=== PATIENT | female | born 1960 | race Caucasian/White ===

== ENCOUNTER 2016-10-12 10:23 | Emergency (ER) | payer BC ==
[2016-10-12 10:36] VITALS: BP 130/97
--- NOTE | 2016-10-12 11:25 | EDM.PDOC ---
ED HPI Trauma - General Chief Complaint: Upper Extremity Injury/Pain Stated Complaint: LT SHOULDER PAIN Time Seen by Provider: 10/12/16 10:38 Source: Reports: Patient, RN notes reviewed - History of Present Illness INITIAL COMMENTS - FREE TEXT/NARRATIVE: 55-year-old lady has been having difficulty with pain of her left shoulder for about the past 2 weeks. She is not aware of any particular acute injury. No fall or trauma to the or more shoulder. She does have a 3-year-old granddaughter and does there has been occasional lifting associated with her granddaughter. The pain has become much worse over the past 4-5 days to there is an 8 present most of the time even at rest. She then has more sharp and shooting discomfort with any type of motion of the arm or shoulder. His been no obvious warmth erythema or swelling. No fever or chills. Allergies/ADRs: Allergies sulfacetamide Allergy (Verified 10/12/16 10:31) Cannot Remember Home Medications: Ambulatory Orders Metoprolol Tartrate 50 mg PO DAILY 04/01/15 [Confirmed 10/12/16] oxyCODONE 10 mg PO QID PRN 04/14/15 [Confirmed 10/12/16] Pramipexole [Mirapex] 1 mg PO 10/12/16 oxyCODONE 10 mg PO Q4H #10 tablet 10/12/16 Past Medical History Cardiovascular History: Reports: Hypertension Other OB/BYN History: Hysterectomy Other Musculoskeletal History: Spinal fusion, hip displasia - Past Surgical History Other Musculoskeletal Surgeries/Procedures:: left hip reconstruction Social & Family History - Family History Family Medical History: Noncontributory - Tobacco Use Smoking Status *Q: Unknown Ever Smoked Years of Tobacco use: 30 Packs/Tins Daily: 1 - Recreational Drug Use Recreational Drug Use: No Review of Systems - Review of Systems Review Of Systems: See Below Constitutional: Denies: chills, fever Eyes: Reports: no symptoms Mouth/Throat: Reports: no symptoms Cardiovascular: Denies: chest pain GI/Abdominal: Denies: Abdominal pain, Nausea, Vomiting Musculoskeletal: Reports: shoulder pain Skin: Reports: no symptoms Neurological: Reports: No Symptoms. Denies: Numbness, Tingling Trauma Exam - Physical Exam Exam: See Below General Appearance: Reports: alert, mild distress Head: Reports: atraumatic Throat/Mouth: Reports: Normal inspection Respiratory Exam: Reports: no respiratory distress, lungs clear, normal breath sounds Cardiovascular: Reports: regular rate, rhythm Extremities: Reports: pain with movement (Left shoulder), tenderness (Moderate diffuse tenderness over the anterior lateral and superior aspect of the left shoulder, no warmth erythema or visible swelling) Neurologic: Reports: no motor/sensory deficits Skin: Reports: Normal color, Warm/dry Course - Vital Signs Last Recorded V/S: Last Vital Signs Temp 98.5 F 10/12/16 10:32 Pulse 97 10/12/16 10:32 Resp 18 10/12/16 10:32 BP 130/97 H 10/12/16 10:32 Pulse Ox 97 10/12/16 10:32 - Orders/Labs/Meds Orders: Active Orders 24 hr Category Date Time Status Shoulder Comp Lt [CR] Stat Exams 10/12/16 10:50 Taken Durable Medical Equipment for Discharge [DME for Oth 10/12/16 11:20 Ordered Discharge] [COMM] Stat - Re-Assessments/Exams Free Text/Narrative Re-Assessment/Exam: 10/12/16 11:39 Radiologist has noted soft tissue calcification seen off the lateral shoulder suggestive for calcific bursitis, she already is taking oxycodone about every 6 hours for chronic pain. She states she has family coming for the holiday weekend and she will be doing a lot of cooking. She is concerned about how she is going to do this. I have recommended that she do work with anti- inflammatories. She reacts to Naprosyn but has been able to take ibuprofen or Motrin. Have also advised that she take Tylenol 2-3 times a day for extra pain relief. Recommend she get started with physical therapy and also alternate ice and heat, as well as followup with her Orthopedist. Discharge instructions as documented. Departure - Departure Time of Disposition: 11:19 Disposition: Home, Self-Care 01 Condition: fair Clinical Impression: Shoulder pain, left Qualifiers: Chronicity: acute Qualified Code(s): M25.512 - Pain in left shoulder Prescriptions: oxyCODONE 10 mg PO Q4H #10 tablet Instructions: Shoulder Pain Referrals: Melodie Castellanos NP [Primary Care Provider] - Forms: ED Department Discharge Additional Instructions: motrin or ibuprofen 4 to 600 mg 3 times daily with food, tylenol 2 to 3 times daily, oxycodone as needed for severe pain, alternate ice and heat as needed, left arm sling for 2-3 days, be sure to get your arm out and exercises as demonstrated so you do not end up with a frozen shoulder, physical therapy. Followup with orthopedist as planned, call for appointment. - My Orders Last 24 Hours: My Active Orders 10/12/16 10:50 Shoulder Comp Lt [CR] Stat 10/12/16 11:20 Durable Medical Equipment for Discharge [DME for Discharge] [COMM] Stat - Assessment/Plan Last 24 Hours: My Active Orders 10/12/16 10:50 Shoulder Comp Lt [CR] Stat 10/12/16 11:20 Durable Medical Equipment for Discharge [DME for Discharge] [COMM] Stat
--- NOTE | 2016-10-12 11:30 | CR ---
Left shoulder: Four views of the left shoulder were obtained. Soft tissue calcification is seen off the lateral shoulder most likely due to calcific bursitis. Glenohumeral joint and acromioclavicular joint appear within normal limits. No acute fracture or other bony abnormality is seen. Impression: 1. Probable calcific bursitis as noted above. 2. Left shoulder exam is otherwise unremarkable. Diagnostic code #3
== END 2016-10-12 11:32 | disposition home or self-care (01) ==
LOC: JD.ED 10:23
DX: M25.512 Pain in left shoulder (principal); I10 Essential (primary) hypertension; Z88.2 Allergy status to sulfonamides; Z90.710 Acquired absence of both cervix and uterus
CPT/HCPCS: 73030-26-LT; 73030-LT; 99283

== ENCOUNTER 2016-11-12 14:17 | Emergency (ER) | payer BC ==
[2016-11-12 14:35] VITALS: BP 151/83
[2016-11-12] MEDS ORDERED: Sodium Chloride 0.9% 2,000 ML IV ONE (15:27)
[2016-11-12] MEDS ORDERED: Ondansetron 4 MG/2 ML SDV IVPUSH ONE (15:27)
[2016-11-12] MEDS ORDERED: Pantoprazole 40 MG Vial IVPUSH ONE (15:28)
--- NOTE | 2016-11-12 15:30 | EDM.PDOC ---
ED HPI GENERAL MEDICAL PROBLEM - General Chief Complaint: Drug or Alcohol Abuse Stated Complaint: VOMITING Time Seen by Provider: 11/12/16 15:07 Source of Information: Reports: Patient History Limitations: Reports: No Limitations - History of Present Illness INITIAL COMMENTS - FREE TEXT/NARRATIVE: Patient is a 55-year-old female who presents today complaining of nausea/ vomiting, diarrhea, and mild generalized abdominal discomfort. Patient states symptoms started approximately 1 week ago. Patients states she believes it maybe related to withdrawing from opiods. She has been in a pain contract with [facility] for many years up until recently. Patient states this past September she went to [facility] and smoked marijuana. She saw her pain specialist a few days after returning and had a urine drug tox obtained positive for marijuana. Her pain contract was terminated. Patient ran out of her pain medications in October and has seen her PCP with refills obtained. States she ran out of the oxycodone this past Tuesday and took 2 hydrocodone tabs from an old prescription this past Tuesday. She does not want to be on narcotic medications any more. She was on chronic pain medications for spinal fusion in 2008 and hip replacement in May 2015. She presents to the ER concerned that she is dehydrated due to the poor oral intake. Again she refuses any pain medications at this time. Past medical history: Chronic pain medications, hypertension, anxiety Current medications: Metoprolol, tizatadine, lorazepam, ibuprofen Location: Reports: Abdomen, Generalized Quality: Reports: Ache Severity: Mild Improves with: Reports: None Worsens with: Reports: None Context: Reports: Other (denies recent consumption of bad or questionable food. No recent out of country travel.) Associated Symptoms: Reports: Loss of Appetite, Malaise, Nausea/Vomiting. Denies: Chest Pain, Cough, Fever/Chills, Shortness of Breath, Syncope Treatments LANGUAGE ASST: Reports: Other (see below) (See HPI) Abdominal Pain Score (Numeric/FACES): 4 - Related Data Allergies Allergy/AdvReac Type Severity Reaction Status Date / Time sulfacetamide Allergy Cannot Verified 11/12/16 14:35 Remember Home Meds: Home Meds Metoprolol Tartrate 50 mg PO DAILY 04/01/15 [History] Pramipexole [Mirapex] 1 mg PO DAILY 10/12/16 [History] Ciprofloxacin HCl [Cipro] 500 mg PO BID #14 tablet 11/12/16 [Rx] LORazepam [Ativan] 1 tab PO BID PRN #10 tablet 11/12/16 [Rx] Ondansetron [Zofran ODT] 4 mg PO Q6H PRN #10 tab.dis 11/12/16 [Rx] metroNIDAZOLE [Flagyl] 500 mg PO Q12H #14 tablet 11/12/16 [Rx] Past Medical History Cardiovascular History: Reports: Hypertension Other OB/BYN History: Hysterectomy Other Musculoskeletal History: Spinal fusion, hip displasia Psychiatric History: Reports: Addiction - Past Surgical History Other Musculoskeletal Surgeries/Procedures:: left hip reconstruction Social & Family History - Family History Family Medical History: Noncontributory - Tobacco Use Smoking Status *Q: Current Every Day Smoker Years of Tobacco use: 40 Packs/Tins Daily: 1 - Caffeine Use Caffeine Use: Reports: None - Recreational Drug Use Recreational Drug Use: Yes Drug Use in Last 12 Months: Yes Recreational Drug Type: Reports: Marijuana/Hashish, Oxycodone Recreational Drug Use Frequency: Daily Recreational Drug Last Use: today ED ROS GENERAL - Review of Systems Review Of Systems: See Below Constitutional: Reports: Malaise, Decreased Appetite. Denies: Fever, Chills HEENT: Reports: No Symptoms Respiratory: Reports: No Symptoms Cardiovascular: Reports: No Symptoms GI/Abdominal: Reports: Abdominal Pain (ache), Diarrhea, Decreased Appetite, Nausea, Vomiting. Denies: Black Stool, Bloody Stool, Constipation, Hematemesis , Melena : Reports: No Symptoms Musculoskeletal: Reports: No Symptoms Neurological: Denies: Dizziness ED EXAM, GI/ABD - Physical Exam Exam: See Below Exam Limited By: No Limitations General Appearance: Alert, WD/WN, No Apparent Distress Eyes: Bilateral: Normal Appearance, EOMI Ears: Hearing Grossly Normal Nose: Normal Inspection Throat/Mouth: Normal Voice, No Airway Compromise Neck: Normal Inspection, Supple, Non-Tender, Full Range of Motion Respiratory/Chest: No Respiratory Distress, Lungs Clear, Normal Breath Sounds, No Accessory Muscle Use, Chest Non-Tender Cardiovascular: Normal Peripheral Pulses, Regular Rate, Rhythm, No Murmur GI/Abdominal: Normal Bowel Sounds, Soft, Non-Tender, No Organomegaly, No Distention Back Exam: Normal Inspection. No: CVA Tenderness (L), CVA Tenderness (R) Neurological: Alert, Oriented, CN II-XII Intact, Normal Cognition, No Motor/ Sensory Deficits Psychiatric: Normal Affect, Normal Mood Skin Exam: Warm, Dry, Intact, Normal Color, No Rash Course - Vital Signs Last Recorded V/S: Last Vital Signs Temp 97.4 F 11/12/16 14:30 Pulse 58 L 11/12/16 14:30 Resp 18 11/12/16 14:30 BP 151/83 H 11/12/16 14:30 Pulse Ox 99 11/12/16 14:30 - Orders/Labs/Meds Orders: Active Orders 24 hr Category Date Time Status Abdomen 2V AP Flat Upright [CR] Stat Exams 11/12/16 15:26 Taken Labs: Laboratory Tests 11/12/16 11/12/16 11/12/16 Range/Units 15:30 15:30 20:00 WBC 13.55 H (3.98-10.04) K/mm3 RBC 5.09 (3.98-5.22) M/mm3 Hgb 16.1 H (11.2-15.7) gm/L Hct 46.1 H (34.1-44.9) % MCV 90.6 (79.4-94.8) fl MCH 31.6 (25.6-32.2) pg MCHC 34.9 (32.2-35.5) g/dl RDW Std Deviation 41.0 (36.4-46.3) fL Plt Count 215 (182-369) K/mm3 MPV 11.2 (9.4-12.3) fl Neut % (Auto) 72.1 H (34.0-71.1) % Lymph % (Auto) 16.4 L (19.3-51.7) % Ward % (Auto) 9.6 (4.7-12.5) % Eos % (Auto) 0.5 L (0.7-5.8) Baso % (Auto) 0.4 (0.1-1.2) % Neut # (Auto) 9.78 H (1.56-6.13) K/mm3 Lymph # (Auto) 2.22 (1.18-3.74) K/mm3 Ward # (Auto) 1.30 H (0.24-0.36) K/mm3 Eos # (Auto) 0.07 (0.04-0.36) K/mm3 Baso # (Auto) 0.05 (0.01-0.08) K/mm3 Manual Slide Review Normal smear Sodium 140 (136-145) mEq/L Potassium 3.2 L (3.5-5.1) mEq/L Chloride 101 (98-107) mEq/L Carbon Dioxide 25 (21-32) mEq/L Anion Gap 17.2 H (5-15) BUN 19 H (7-18) mg/dL Creatinine 1.0 (0.55-1.02) mg/dL Est Cr Clr Drug Dosing 50.27 mL/min Estimated GFR (MDRD) 58 (>60) mL/min BUN/Creatinine Ratio 19.0 H (14-18) Glucose 103 (74-106) mg/dL Calcium 9.4 (8.5-10.1) mg/dL Total Bilirubin 0.9 (0.2-1.0) mg/dL AST 16 (15-37) U/L ALT 22 (14-59) U/L Alkaline Phosphatase 94 (46-116) U/L C-Reactive Protein < 0.2 (<1.0) mg/dL Total Protein 7.9 (6.4-8.2) g/dl Albumin 4.2 (3.4-5.0) g/dl Globulin 3.7 gm/dL Albumin/Globulin Ratio 1.1 (1-2) Lipase 754 H (73-393) U/L Urine Color (Yellow) Urine Appearance (Clear) Urine pH (5.0-8.0) Ur Specific [place] (1.005-1.030) Urine Protein (Negative) Urine Glucose (UA) (Negative) Urine Ketones (Negative) Urine Occult Blood (Negative) Urine Nitrite (Negative) Urine Bilirubin (Negative) Urine Urobilinogen (0.2-1.0) Ur Leukocyte Esterase (Negative) Urine RBC (0-5) /hpf Urine WBC (0-5) /hpf Ur Epithelial Cells Ur Squamous Epith Cells (0-5) /hpf Urine Bacteria (FEW) /hpf Urine Mucus (FEW) /hpf Urine Opiates Screen Negative (NEGATIVE) Ur Buprenorphine Scrn Negative (NEGATIVE) Ur Oxycodone Screen Negative (NEGATIVE) Urine Methadone Screen Negative (NEGATIVE) Ur Propoxyphene Screen Negative (NEGATIVE) Ur Barbiturates Screen Negative (NEGATIVE) Ur Tricyclics Screen Negative (NEGATIVE) Ur Phencyclidine Scrn Negative (NEGATIVE) Ur Amphetamine Screen Negative (NEGATIVE) U Methamphetamines Scrn Negative (NEGATIVE) U Benzodiazepines Scrn Presumptive positive H (NEGATIVE) U Cocaine Metab Screen Negative (NEGATIVE) U Marijuana (THC) Screen Presumptive positive H (NEGATIVE) Ethyl Alcohol 0.00 (0.00) gm% 11/12/16 Range/Units 20:00 WBC (3.98-10.04) K/mm3 RBC (3.98-5.22) M/mm3 Hgb (11.2-15.7) gm/L Hct (34.1-44.9) % MCV (79.4-94.8) fl MCH (25.6-32.2) pg MCHC (32.2-35.5) g/dl RDW Std Deviation (36.4-46.3) fL Plt Count (182-369) K/mm3 MPV (9.4-12.3) fl Neut % (Auto) (34.0-71.1) % Lymph % (Auto) (19.3-51.7) % Ward % (Auto) (4.7-12.5) % Eos % (Auto) (0.7-5.8) Baso % (Auto) (0.1-1.2) % Neut # (Auto) (1.56-6.13) K/mm3 Lymph # (Auto) (1.18-3.74) K/mm3 Ward # (Auto) (0.24-0.36) K/mm3 Eos # (Auto) (0.04-0.36) K/mm3 Baso # (Auto) (0.01-0.08) K/mm3 Manual Slide Review Sodium (136-145) mEq/L Potassium (3.5-5.1) mEq/L Chloride (98-107) mEq/L Carbon Dioxide (21-32) mEq/L Anion Gap (5-15) BUN (7-18) mg/dL Creatinine (0.55-1.02) mg/dL Est Cr Clr Drug Dosing mL/min Estimated GFR (MDRD) (>60) mL/min BUN/Creatinine Ratio (14-18) Glucose (74-106) mg/dL Calcium (8.5-10.1) mg/dL Total Bilirubin (0.2-1.0) mg/dL AST (15-37) U/L ALT (14-59) U/L Alkaline Phosphatase (46-116) U/L C-Reactive Protein (<1.0) mg/dL Total Protein (6.4-8.2) g/dl Albumin (3.4-5.0) g/dl Globulin gm/dL Albumin/Globulin Ratio (1-2) Lipase (73-393) U/L Urine Color Yellow (Yellow) Urine Appearance Clear (Clear) Urine pH 5.5 (5.0-8.0) Ur Specific [place] 1.025 (1.005-1.030) Urine Protein Negative (Negative) Urine Glucose (UA) Negative (Negative) Urine Ketones 1+ H (Negative) Urine Occult Blood Trace-lysed H (Negative) Urine Nitrite Negative (Negative) Urine Bilirubin 1+ H (Negative) Urine Urobilinogen 0.2 (0.2-1.0) Ur Leukocyte Esterase Negative (Negative) Urine RBC 0-5 (0-5) /hpf Urine WBC 0-5 (0-5) /hpf Ur Epithelial Cells Not Reportable Ur Squamous Epith Cells 0-5 (0-5) /hpf Urine Bacteria Moderate H (FEW) /hpf Urine Mucus Moderate H (FEW) /hpf Urine Opiates Screen (NEGATIVE) Ur Buprenorphine Scrn (NEGATIVE) Ur Oxycodone Screen (NEGATIVE) Urine Methadone Screen (NEGATIVE) Ur Propoxyphene Screen (NEGATIVE) Ur Barbiturates Screen (NEGATIVE) Ur Tricyclics Screen (NEGATIVE) Ur Phencyclidine Scrn (NEGATIVE) Ur Amphetamine Screen (NEGATIVE) U Methamphetamines Scrn (NEGATIVE) U Benzodiazepines Scrn (NEGATIVE) U Cocaine Metab Screen (NEGATIVE) U Marijuana (THC) Screen (NEGATIVE) Ethyl Alcohol (0.00) gm% Meds: Medications Discontinued Medications Generic Name Dose Route Start Last Admin Trade Name Freq PRN Reason Stop Dose Admin Diatrizoate Meglum/Diatrizoate Sod 90 ml 11/12/16 19:35 11/12/16 20:01 Gastrografin 37% PO 11/12/16 19:36 90 ml ONETIME ONE Administration Sodium Chloride 2,000 mls @ 999 mls/hr 11/12/16 15:27 11/12/16 15:37 Normal Saline IV 11/12/16 17:27 999 mls/hr ONETIME ONE Administration Sodium Chloride Confirm 11/12/16 18:12 Normal Saline Administered 11/12/16 18:13 Dose 1,000 mls @ as directed .ROUTE .STK-MED ONE Iopamidol 125 ml 11/12/16 19:35 11/12/16 20:01 Isovue-300 (61%) IVPUSH 11/12/16 19:36 121 ml ONETIME ONE Administration Lorazepam 1 mg 11/12/16 17:27 11/12/16 17:35 Ativan IVPUSH 11/12/16 17:28 1 mg ONETIME ONE Administration Lorazepam 1 mg 11/12/16 19:49 11/12/16 20:27 Ativan IVPUSH 11/12/16 19:50 1 mg ONETIME ONE Administration Metronidazole 500 mg 11/12/16 20:35 11/12/16 21:26 Flagyl PO 11/12/16 20:36 500 mg ONETIME ONE Administration Ondansetron HCl 4 mg 11/12/16 15:27 11/12/16 15:39 Zofran IVPUSH 11/12/16 15:28 4 mg ONETIME ONE Administration Pantoprazole Sodium 40 mg 11/12/16 15:28 11/12/16 15:37 Protonix Iv IVPUSH 11/12/16 15:29 40 mg ONETIME ONE Administration Sodium Chloride 10 ml 11/12/16 19:35 11/12/16 20:01 Saline Flush FLUSH 11/12/16 19:36 10 ml ONETIME ONE Administration - Re-Assessments/Exams Free Text/Narrative Re-Assessment/Exam: 11/12/16 15:28 order peripheral IV with normal saline and then diagnosed per hour, 2000 mL total, Zofran 4 mg IVP, Protonix 40 mg IVP. Initial lab studies include CBC, chem 14, CRP, lipase, UA, urine drug tox, semi-to age, and abdominal flat and upright. Labs reviewed: White blood cell count 13.5, hemoglobin 16.1, sodium 140, potassium mildly low at 3.2, cr 1.0, AG 17.2, CRP less than 0.2, lipase of 54, EtOH negative. UA and drug tox not obtained. 11/12/16 17:26 Reviewed labs and x-ray with patient. Lipase is mildly elevated. CRP is WNL. Patient has no history of pancreatitis. I suggested no further testing at this time. Patient requests CT Study of the abdomen to evaluate pancreas further. 11/12/16 19:49 Patient complains of being jittery and requests ativan. Ordered ativan 1mg IVP. She is going to CT at this time. 11/12/16 20:34 CT abdomen/pelvis impression: Bowel wall thickening within the right colon compatible with nonspecific colitis. Ordered flagyl 500mg PO. Discharged home with instructions and prescription for ativan, flagyl, cipro, and zofran. Departure - Departure Time of Disposition: 21:27 Disposition: Home, Self-Care 01 Condition: fair Clinical Impression: Colitis, Anxiety, Marijuana use, Serum lipase elevation Opioid dependence Qualifiers: Substance use status: uncomplicated Qualified Code(s): F11.20 - Opioid dependence, uncomplicated - Discharge Information Prescriptions: Ciprofloxacin HCl [Cipro] 500 mg PO BID #14 tablet LORazepam [Ativan] 1 tab PO BID PRN #10 tablet PRN Reason: Anxiety Ondansetron [Zofran ODT] 4 mg PO Q6H PRN #10 tab.dis PRN Reason: Nausea metroNIDAZOLE [Flagyl] 500 mg PO Q12H #14 tablet Instructions: Finding Treatment for Addiction, Colitis Referrals: Melodie Castellanos FIELD SUPPORT TECHNICIAN [Primary Care Provider] - Additional Instructions: Take Cipro 500 mg twice a day for 7 days, Flagyl 500 mg twice a day for 7 days, Zofran 4m odt every 6 hours for nausea, and ativan 1 tab twice a day as needed for anxiety. Stick to a clear liquid diet for the next three days advancing to a soft bland diet for additional 3 days. Thereafter advance to normal diet as tolerated. Suggest taking a probiotic while on the antibiotics. See your PCP in 3 to 5 days if symptoms do not improve and for further management of pain. Do not take the zanaflex while taking cipro. Return to the E.D. for any new or worsening symptoms. - My Orders Last 24 Hours: My Active Orders 11/12/16 15:26 Abdomen 2V AP Flat Upright [CR] Stat - Assessment/Plan Last 24 Hours: My Active Orders 11/12/16 15:26 Abdomen 2V AP Flat Upright [CR] Stat
[2016-11-12] MEDS ORDERED: LORazepam 2 MG/ML MDV IVPUSH ONE ×2 (17:27→19:49)
[2016-11-12] MEDS ORDERED: Sodium Chloride 0.9% 1,000 ML ONE (18:12)
[2016-11-12] MEDS ORDERED: Diatrizoate Meglumine/Diatrizoate Sodium 37% 120 ML Bottle PO ONE (19:35)
[2016-11-12] MEDS ORDERED: Iopamidol 612 MG/ML 150 ML Bottle IVPUSH ONE (19:35)
[2016-11-12] MEDS ORDERED: Sodium Chloride 0.9% 10 ML Syringe FLUSH ONE (19:35)
--- NOTE | 2016-11-12 20:29 | CT ---
CT abdomen and pelvis Technique: Multiple axial sections were obtained from above the dome of the diaphragm inferiorly through the pubic symphysis. Intravenous and oral contrast was utilized. Delayed images were also obtained through the abdomen and pelvis. Comparison: Previous noncontrast CT abdomen and pelvis exam of 09/22/13. Findings: Visualized lung bases shows nothing acute. Liver shows a very minimal low density lesion within the inferior right lobe measuring several millimeters which is likely incidental. No additional abnormality is seen within the liver. Spleen shows several low-density findings which are felt to be incidental. Adrenal glands show no nodule. Pancreas is unremarkable. Gallbladder is mostly collapsed without calcified gallstones. Pancreas is within normal limits. Aorta and iliac vessels shows atherosclerotic change. No aneurysmal dilatation is seen. No retroperitoneal adenopathy or mesenteric abnormalities are seen. Artifact noted from screws within the left iliac wing. No pelvic mass or adenopathy is noted. Appendix is seen which appears normal. There is some bowel wall thickening within the right colon. No small bowel dilatation is seen. No free fluid or inflammatory change is noted. Artifact noted from right hip prosthesis. Previous surgery noted at L5-S1. Delayed images shows contrast excretion from both kidneys with no dilatation of the ureters being seen. Contrast is seen within the bladder. Impression: 1. Bowel wall thickening within the right colon compatible with nonspecific colitis. 2. Other incidental findings. Nothing acute is otherwise seen on CT study of the abdomen and pelvis. Diagnostic code #3
[2016-11-12] MEDS ORDERED: metroNIDAZOLE 500 MG Tab PO ONE (20:35)
--- NOTE | 2016-11-14 07:40 | CR ---
Abdomen: Supine and upright views of the abdomen were obtained. Comparison: No previous abdominal x-ray, previous CT exam of 09/22/13 is available. Bowel gas pattern is unremarkable. Right hip prosthesis noted. Old pelvic trauma is noted on the left side. Orthopedic screws seen within the left iliac wing. Several surgical clips are seen overlying the sacrum. No free air is seen. No soft tissue abnormality is identified. Calcifications are noted within the pelvis which are compatible with phleboliths. Impression: 1. Incidental findings. Nothing acute is identified on two-view abdominal x-ray. Diagnostic code #2
== END 2016-11-12 21:50 | disposition home or self-care (01) ==
LOC: JD.ED 14:17
DX: K52.9 Noninfective gastroenteritis and colitis, unspecified (principal); F12.90 Cannabis use, unspecified, uncomplicated; F11.20 Opioid dependence, uncomplicated; R74.8 Abnormal levels of other serum enzymes; I10 Essential (primary) hypertension; F17.210 Nicotine dependence, cigarettes, uncomplicated; Z96.642 Presence of left artificial hip joint; Z98.1 Arthrodesis status; Z79.899 Other long term (current) drug therapy; Z90.710 Acquired absence of both cervix and uterus; Z88.2 Allergy status to sulfonamides
CPT/HCPCS: 36415; 74020; 74177; 80053; 80306; 81001; 83690; 85025; 86140; 96361; 96374; 96375; 96376; 99285; A9270; C9113; G0480; J2060; J2405; J7040; J7050; Q9963; Q9967; 99284

== ENCOUNTER 2016-11-14 11:25 | Emergency (ER) | payer BC ==
--- NOTE | 2016-11-14 11:59 | EDM.PDOC ---
ED HPI GENERAL MEDICAL PROBLEM - General Chief Complaint: Gastrointestinal Problem Stated Complaint: CANT KEEP FOOD OR MEDS DOWN Time Seen by Provider: 11/14/16 11:50 Source of Information: Reports: Patient History Limitations: Reports: No Limitations - History of Present Illness INITIAL COMMENTS - FREE TEXT/NARRATIVE: 55-year-old female presents to the ED to to persistent nausea vomiting and diarrhea. Patient states that she stopped her OxyContin which she was taking 50 mg 3 times a day last Tuesday, November 06. 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 Has chronic low back pain with 2 previous lumbar spine surgeries. She is elected to remain off narcotics. She states that she can't keep anything down she is continually nauseated with intermittent abdominal cramping pain. She states she's having up to 15 loose bowel movements per day. Loose and watery. No blood noted. Vomited last evening. Again no blood has been noted. She 's lightheaded and dizzy when she stands. She was seen to the ED 2 days ago and did have CT of the abdomen carried out. This suggested that she an area of colitis involving the transverse colon. She did have an elevated lipase at 794 when she was seen through the ED. She was not having a lot of abdominal pain that concurred with this. CT did not show any evidence of pancreatitis. She was brought depleted with an anion gap of 17.5. She was also hypokalemic with potassium of 3.2. She was treated with IV fluids and potassium replacement therapy. Discharged home on Flagyl and Cipro due to the colitis identified on CT. She is on Ativan 1 mg up to 4 times daily for relief of opiate withdrawal symptoms. She does not wish to go back on any narcotics. Currently she is having very little abdominal pain. She still of course is her chronic pain in her back and hips and knees. Onset: Gradual Onset Date: 11/10/16 Duration: Day(s):, Constant Location: Reports: Other (Recurrent intractable nausea vomiting and diarrhea. Acute narcotic withdrawal syndrome.) Quality: Reports: Other Severity: Moderate (Intermittent abdominal cramps.) Improves with: Reports: None (Zofran sublingual has not been working to control nausea.), Other (Did have a little chicken broth soup last night.) Worsens with: Reports: Other Context: Reports: Other (Acute opiate withdrawal with last dose of narcotic taken a week ago.). Denies: Activity (Eating), Exercise, Lifting, Sick Contact , Trauma Associated Symptoms: Reports: Malaise, Nausea/Vomiting, Other (Intractable nausea and vomiting intractable diarrhea). 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 (see below) Abdominal Pain Score (Numeric/FACES): 0 - Related Data Allergies Allergy/AdvReac Type Severity Reaction Status Date / Time metoclopramide [From Reglan] Allergy Agitation Verified 11/14/16 14:18 sulfacetamide Allergy Cannot Verified 11/14/16 11:47 Remember Home Meds: Home Meds Metoprolol Tartrate 50 mg PO DAILY 04/01/15 [History] Pramipexole [Mirapex] 1 mg PO DAILY 10/12/16 [History] Ciprofloxacin HCl [Cipro] 500 mg PO BID #14 tablet 11/12/16 [Rx] LORazepam [Ativan] 1 tab PO BID PRN #10 tablet 11/12/16 [Rx] Ondansetron [Zofran ODT] 4 mg PO Q6H PRN #10 tab.dis 11/12/16 [Rx] metroNIDAZOLE [Flagyl] 500 mg PO Q12H #14 tablet 11/12/16 [Rx] Dicyclomine [Bentyl] 20 mg IM QID #12 vial 11/14/16 [Rx] Suvorexant [Belsomra] 11/14/16 [History] Suvorexant [Belsomra] 20 mg PO BEDTIME 11/14/16 [History] Past Medical History Cardiovascular History: Reports: Hypertension Other OB/BYN History: Hysterectomy Musculoskeletal History: Reports: Back Pain, Chronic (2 previous lumbar spine surgeries with continued pain referred into the buttocks and upper legs bilaterally. Had congenital dysplasia of the hips. Has had a total hip replacement on the right side and reconstructive surgery on the left.), Osteoarthritis Other Musculoskeletal History: Spinal fusion, hip displasia Neurological History: Reports: Other (See Below) (Restless leg syndrome.) Psychiatric History: Reports: Addiction - Past Surgical History Female Surgical History: Reports: Section (X3) Neurological Surgical History: Reports: Discectomy (He believes L4-L5 levels.), Laminectomy (X2 with discectomy.), Lumbar Spine Musculoskeletal Surgical History: Reports: Hip Replacement (Right side) Other Musculoskeletal Surgeries/Procedures:: left hip reconstruction Social & Family History - Family History Family Medical History: Noncontributory - Tobacco Use Smoking Status *Q: Current Every Day Smoker Years of Tobacco use: 40 Packs/Tins Daily: 1 - Caffeine Use Caffeine Use: Reports: None - Recreational Drug Use Recreational Drug Use: Yes Drug Use in Last 12 Months: Yes Recreational Drug Type: Reports: Marijuana/Hashish, Oxycodone Recreational Drug Use Frequency: Daily Recreational Drug Last Use: today - Living Situation & Occupation Living situation: Reports: Occupation: Unemployed ED ROS GENERAL - Review of Systems Review Of Systems: See Below Constitutional: Reports: Chills, Malaise, Weakness, Fatigue, Decreased Appetite , Weight Loss (Feel she's lost about 8 pounds in the last week.). Denies: Fever HEENT: Reports: No Symptoms Respiratory: Reports: No Symptoms Cardiovascular: Reports: Lightheadedness (Sometimes. When she stands up.), Palpitations Endocrine: Reports: Fatigue GI/Abdominal: Reports: Abdominal Pain (Intermittent abdominal cramps.), Diarrhea (Reports severe diarrhea large volume water loss per rectum 15 times per day. No blood per rectum.), Nausea (Intractable nausea and vomiting with bilious material.), Vomiting : Reports: No Symptoms Musculoskeletal: Reports: Back Pain (Chronic low back pain chronic pain in both hips), Joint Pain (Both hip) Skin: Reports: No Symptoms Neurological: Reports: Dizziness, Difficulty Walking (Chronically), Weakness, Gait Disturbance (Chronic). Denies: Numbness, Paresthesia, Seizure, Syncope, Tingling, Tremors, Trouble Speaking Psychiatric: Reports: Anxiety, Mood Lability. Denies: Homicidal Ideation, Suicidal Ideation Hematologic/Lymphatic: Reports: No Symptoms Immunologic: Reports: No Symptoms ED EXAM, GI/ABD - Physical Exam Exam: See Below Exam Limited By: No Limitations General Appearance: Alert, WD/WN, Anxious, Mild Distress Eyes: Bilateral: Normal Appearance (No jaundice) Throat/Mouth: Normal Lips, Normal Oropharynx, Other Head: Atraumatic, Normocephalic Neck: Normal Inspection, Supple, Non-Tender, Full Range of Motion. No: Lymphadenopathy (L), Lymphadenopathy (R) Respiratory/Chest: No Respiratory Distress, Lungs Clear, Normal Breath Sounds, No Accessory Muscle Use Cardiovascular: Normal Peripheral Pulses, Regular Rate, Rhythm, No Edema, No Gallop, No Murmur GI/Abdominal: Normal Bowel Sounds, Soft, Non-Tender, No Organomegaly, No Distention, No Abnormal Bruit, No Mass, Other (Multiple well-healed surgical scars particular midline lower abdomen. Left lower quadrant wound was for harvesting of bone from her iliac crest.) Back Exam: Paraspinal Tenderness (Bilaterally entire lumbar spine), Vertebral Tenderness ( spine.), Other (Well-healed midline surgical scars over the lumbar) Extremities: Normal Inspection, Normal Range of Motion, Non-Tender, No Pedal Edema Neurological: Alert, Oriented, CN II-XII Intact, Normal Cognition. No: Normal Gait Psychiatric: Normal Affect, Normal Mood Skin Exam: Warm, Dry, Intact, Normal Color, No Rash Course - Vital Signs Last Recorded V/S: Last Vital Signs Temp 36.8 C 11/14/16 11:50 Pulse 65 11/14/16 11:50 Resp 16 11/14/16 11:50 BP 134/85 11/14/16 11:50 Pulse Ox 96 11/14/16 11:50 - Orders/Labs/Meds Orders: Active Orders 24 hr Category Date Time Status Orthostatic Vital Signs [RC] ASDIRECTED Care 11/14/16 12:03 Active C DIFFICILE BY PCR W/NAP1 [MOLEC] Stat Lab 11/14/16 11:59 Ordered WBC, STOOL [OP] Stat Lab 11/14/16 12:03 Uncollected Dextrose 5%-0.9% NaCl [Dextrose 5%-Normal Saline] 1,000 Med 11/14/16 12:00 Active ml IV ASDIRECTED Potassium Chloride [KCl 10 MEQ in Water 100 ML] 10 meq Med 11/14/16 12:45 Active Premix Bag 1 bag IV ASDIRECTED Medication Orders Dextrose/Sodium Chloride (Dextrose 5%-Normal Saline) 1,000 mls @ 999 mls/hr IV ASDIRECTED JO Last Admin: 11/14/16 12:33 Dose: 999 mls/hr Potassium Chloride 10 meq/ (Premix) 100 mls @ 100 mls/hr IV ASDIRECTED JO Last Admin: 11/14/16 13:30 Dose: 100 mls/hr Labs: Laboratory Tests 11/14/16 11/14/16 Range/Units 12:03 12:03 WBC 11.55 H (3.98-10.04) K/mm3 RBC 4.29 (3.98-5.22) M/mm3 Hgb 13.5 (11.2-15.7) gm/L Hct 39.2 (34.1-44.9) % MCV 91.4 (79.4-94.8) fl MCH 31.5 (25.6-32.2) pg MCHC 34.4 (32.2-35.5) g/dl RDW Std Deviation 40.4 (36.4-46.3) fL Plt Count 192 (182-369) K/mm3 MPV 11.3 (9.4-12.3) fl Neutrophils % (Manual) 73 H (40-60) % Band Neutrophils % 0 (0-10) % Lymphocytes % (Manual) 23 (20-40) % Atypical Lymphs % 0 % Monocytes % (Manual) 3 (2-10) % Eosinophils % (Manual) 1 (0.7-5.8) % Basophils % (Manual) 0 L (0.1-1.2) Platelet Estimate Adequate RBC Morph Comment Normal Sodium 140 (136-145) mEq/L Potassium 3.2 L (3.5-5.1) mEq/L Chloride 104 (98-107) mEq/L Carbon Dioxide 27 (21-32) mEq/L Anion Gap 12.2 (5-15) BUN 8 (7-18) mg/dL Creatinine 1.0 (0.55-1.02) mg/dL Est Cr Clr Drug Dosing 52.58 mL/min Estimated GFR (MDRD) 58 (>60) mL/min BUN/Creatinine Ratio 8.0 L (14-18) Glucose 99 (74-106) mg/dL Calcium 8.8 (8.5-10.1) mg/dL Total Bilirubin 0.6 (0.2-1.0) mg/dL AST 17 (15-37) U/L ALT 19 (14-59) U/L Alkaline Phosphatase 81 (46-116) U/L C-Reactive Protein 0.2 (<1.0) mg/dL Total Protein 6.8 (6.4-8.2) g/dl Albumin 3.7 (3.4-5.0) g/dl Globulin 3.1 gm/dL Albumin/Globulin Ratio 1.2 (1-2) Lipase 289 (73-393) U/L Meds: Medications Generic Name Dose Route Start Last Admin Trade Name Freq PRN Reason Stop Dose Admin Dextrose/Sodium Chloride 1,000 mls @ 999 mls/hr 11/14/16 12:00 11/14/16 12:33 Dextrose 5%-Normal Saline IV 999 mls/hr ASDIRECTED JO Administration Potassium Chloride 10 meq/ 100 mls @ 100 mls/hr 11/14/16 12:45 11/14/16 13:30 Premix IV 100 mls/hr ASDIRECTED JO Administration Discontinued Medications Generic Name Dose Route Start Last Admin Trade Name Freq PRN Reason Stop Dose Admin Dicyclomine HCl 20 mg 11/14/16 12:00 11/14/16 13:30 Bentyl PO 11/14/16 12:01 20 mg ONETIME ONE Administration Diphenhydramine HCl 25 mg 11/14/16 12:45 11/14/16 12:53 Benadryl IVPUSH 11/14/16 12:46 25 mg ONETIME ONE Administration Diphenhydramine HCl Confirm 11/14/16 12:48 11/14/16 14:07 Benadryl Administered 11/14/16 12:49 Not Given Dose 50 mg .ROUTE .STK-MED ONE Diphenhydramine HCl 25 mg 11/14/16 12:55 11/14/16 12:57 Benadryl IVPUSH 11/14/16 12:56 25 mg ONETIME ONE Administration Lorazepam 1 mg 11/14/16 12:01 11/14/16 12:30 Ativan IVPUSH 11/14/16 12:02 1 mg ONETIME ONE Administration Lorazepam 1 mg 11/14/16 14:03 11/14/16 14:10 Ativan IVPUSH 11/14/16 14:04 1 mg ONETIME ONE Administration Metoclopramide HCl 10 mg 11/14/16 12:01 11/14/16 12:20 Reglan IVPUSH 11/14/16 12:02 10 mg ONETIME ONE Administration Potassium Bicarbonate 20 meq 11/14/16 14:34 Effer-K PO 11/14/16 14:35 ONETIME ONE - Radiology Interpretation Free Text/Narrative:: 55-year-old female presents to the ED with reported inability to keep anything down due to intractable nausea and vomiting and associated diarrhea. She claims 15 bowel movements per day for the last several days. She is going to acute opiate withdrawal having last taken any opiates last Tuesday, November 06. She was on OxyContin 15 mg 3 times daily plus other narcotics for breakthrough pain. She was kicked off the chronic pain management plan by Dr. Schultz when she returned from [place] with marijuana in her system. She is elected to stay off narcotics and see if she get along without them. Unfortunately she's developed a lot of GI upset. She was seen through the ED 2 days ago and did receive IV fluids and potassium replacement therapy. She was discharged home on Flagyl 500 3 times a day with Cipro 500 twice a day due to an area of colitis appreciated on CT scan. She had an elevated lipase at 794 of unclear etiology. She denies any abdominal pain this time. States gets intermittent cramps before the diarrhea occurs. Plan stool will be collected for white cells and C. difficile. She denies any antibiotic therapy in the last several months. She is orthostatic and therefore will receive IV fluids initially D5 normal saline at open. Potassium was low-normal at 3.2 last time. She may well require further potassium replacement therapy as well. Given Ativan 1 mg IV at this time. Reglan 10 mg IV for nausea and vomiting relief Bentyl 20 mg by mouth about 20 minutes after that Reglan has been given to relieve cramping. - Re-Assessments/Exams Free Text/Narrative Re-Assessment/Exam: 11/14/16 12:42 labs are back and revealed a white count of 11.55 differential is pending. Hemoglobin is 13.5 hematocrit is 39.2 platelets 192,000. Chemistry shows a sodium of 140 potassium low at 3.2. Chloride 104 bicarbonate is normal at 27. Anion gap is 12.2 normal lipase is down to 289 glucose is 99. She will therefore be given potassium supplement 10 mEq IV piggyback over half an hour. Clinically therefore her lites are very stable and I doubt that she's having 15 loose stools per day particularly in view of the bicarbonate being normal. 11/14/16 12:46 nurse reports the patient seems to be more anxious and agitated since receiving the Reglan. He clinically appears she is experiencing a moderate dystonic reaction. Will give Benadryl 25 mg IV. 11/14/16 12:55 still feeling quite restless and agitated. Will repeat Benadryl 25 mg IV. 11/14/16 13:18 finally agitation and dystonic reaction is settling down after 50 mg of Benadryl. 11/14/16 14:35 patient could not tolerate the potassium the minibag as it caused too much pain in the limb. IV was discontinued. I will give her Slow-K 20 mg tablet by mouth. She'll be discharged to home to continue clear fluids such Gatorade Powerade avoiding all-day products and no apple juice or grape juice until stools are formed back up. We'll place the Cipro and Flagyl on hold at this time. She'll continue Zofran 4 mg sublingual q. 6 hours. For nausea relief. Then 1 mg every 6-8 hours as needed for relief of opiate withdrawal symptoms Departure - Departure Time of Disposition: 14:36 Disposition: Home, Self-Care 01 Condition: fair Clinical Impression: Volume depletion, gastrointestinal loss, Opiate withdrawal Intractable nausea and vomiting Qualifiers: Vomiting type: unspecified Qualified Code(s): R11.2 - Nausea with vomiting, unspecified Diarrhea Qualifiers: Diarrhea type: unspecified type Qualified Code(s): R19.7 - Diarrhea, unspecified - Discharge Information Prescriptions: Dicyclomine [Bentyl] 20 mg IM QID #12 vial Referrals: Melodie Castellanos NP [Primary Care Provider] - Forms: ED Department Discharge Additional Instructions: Evaluation in the emergency him today in regards to persistent intractable nausea and vomiting and associated fluid losses by diarrhea. Opiate withdrawal syndrome recognized and currently on day 7 since last opiate ingestion. You're treated with IV fluids and a small amount of IV potassium in the ED. Potassium level today was 3.2. You're also given Slow-K 20 mg tablet by mouth to improve the levels of this electrolyte. No diarrhea occurred while in the department and additional samples were obtained of the stool. At this time I would suggest Gatorade Powerade and as tolerated may treat his crackers toast and soup such as turkey rice turkey noodle et cetera. Avoid all dairy products and no apple or grape juice until stools are formed back up. Continue probiotics as you have been trying to do. Continue Ativan one tablet every 6-8-12 hours as needed for withdrawal symptoms. Zofran 4 mg under the tongue every 4-6 hours needed for nausea relief. May use Bentyl 20 mg every 6 hours as necessary for relief of diarrhea or bowel cramping pain. 2 to dystonic reaction from Reglan I would suggest ever using this medication again if this is a side effect of some of the antinausea medications. Not a true allergy. - My Orders Last 24 Hours: My Active Orders 11/14/16 11:59 C DIFFICILE BY PCR W/NAP1 [MOLEC] Stat 11/14/16 12:00 Dextrose 5%-0.9% NaCl [Dextrose 5%-Normal Saline] 1,000 ml IV ASDIRECTED 11/14/16 12:03 Orthostatic Vital Signs [RC] ASDIRECTED WBC, STOOL [OP] Stat 11/14/16 12:45 Potassium Chloride [KCl 10 MEQ in Water 100 ML] 10 meq Premix Bag 1 bag IV ASDIRECTED - Assessment/Plan Last 24 Hours: My Active Orders 11/14/16 11:59 C DIFFICILE BY PCR W/NAP1 [MOLEC] Stat 11/14/16 12:00 Dextrose 5%-0.9% NaCl [Dextrose 5%-Normal Saline] 1,000 ml IV ASDIRECTED 11/14/16 12:03 Orthostatic Vital Signs [RC] ASDIRECTED WBC, STOOL [OP] Stat 11/14/16 12:45 Potassium Chloride [KCl 10 MEQ in Water 100 ML] 10 meq Premix Bag 1 bag IV ASDIRECTED
[2016-11-14] MEDS ORDERED: Dicyclomine 10 MG Cap PO ONE (12:00)
[2016-11-14] MEDS ORDERED: Dextrose 5%-0.9% NaCl 1,000 ML IV SCH (12:00)
[2016-11-14] MEDS ORDERED: LORazepam 2 MG/ML MDV IVPUSH ONE ×2 (12:01→14:03)
[2016-11-14] MEDS ORDERED: Metoclopramide 10 MG/2 ML SDV IVPUSH ONE (12:01)
[2016-11-14] MEDS ORDERED: diphenhydrAMINE 50 MG/ML SDV IVPUSH ONE ×2 (12:45→12:55)
[2016-11-14] MEDS ORDERED: Potassium Chloride 10 MEQ in Premix Bag 1 BAG IV SCH (12:45)
[2016-11-14] MEDS ORDERED: diphenhydrAMINE 50 MG/ML SDV ONE (12:48)
[2016-11-14] MEDS ORDERED: Potassium Bicarbonate/Cit Ac 20 MEQ Effervescent Tab PO ONE (14:34)
[2016-11-14 16:29] VITALS: BP 124/54
== END 2016-11-14 15:05 | disposition home or self-care (01) ==
LOC: JD.ED 11:25
DX: E86.9 Volume depletion, unspecified (principal); F11.23 Opioid dependence with withdrawal; I10 Essential (primary) hypertension; F17.210 Nicotine dependence, cigarettes, uncomplicated; Z88.2 Allergy status to sulfonamides; Z88.8 Allergy status to other drugs, medicaments and biological substances; Z79.899 Other long term (current) drug therapy; Z90.710 Acquired absence of both cervix and uterus; Z96.641 Presence of right artificial hip joint
CPT/HCPCS: 36415; 80053; 83690; 85025; 86140; 96361; 96365; 96375; 99284; A9270; J1200; J2060; J2765; J3480; J7042

== ENCOUNTER 2019-05-18 09:02 | Emergency (ER) | payer BC ==
[2019-05-18 09:15] VITALS: BP 150/77; PULSE 73
--- NOTE | 2019-05-18 09:18 | EDM.PDOC ---
ED HPI GENERAL MEDICAL PROBLEM - General Chief Complaint: Back Pain or Injury Stated Complaint: BACK PAIN Time Seen by Provider: 05/18/19 09:12 Source of Information: Reports: Patient, RN Notes Reviewed History Limitations: Reports: No Limitations - History of Present Illness INITIAL COMMENTS - FREE TEXT/NARRATIVE: Patient is a 58-year-old female who presents to the ED for evaluation of lower back pain. The patient notes that she has had multiple different back surgeries , and a right hip replacement. She states she does have a fusion of L5 and S1, and notes that she does need another fusion but her back pain has been tolerable , so they decided to wait to have this done. Patient notes roughly 2 days ago she had a chiropractic treatment and a massage for this, and it did seem to get better however yesterday morning she woke up with spasms in her lower back with pain radiation into both of her hips. She did take 1 Flexeril at home, and some leftover pain pill she had from previous surgeries, but these have not helped much at all. Patient has not taken anything for medication for pain today. Patient states she does have tingling down her legs, but feels most of the pain radiate into the hips. She denies any bowel or bladder dysfunction. She denies any other sick symptoms like fever/chills, nausea/vomiting/diarrhea, chest pain or shortness of breath. Her back surgeon is Dr. Ridley out of [facility]. Lower Back Pain Score (Numeric/FACES): 8 - Related Data Allergies Allergy/AdvReac Type Severity Reaction Status Date / Time sulfacetamide Allergy Cannot Verified 05/18/19 09:09 Remember metoclopramide [From Reglan] AdvReac Agitation Verified 05/18/19 09:20 Home Meds: Home Meds Metoprolol Tartrate 50 mg PO DAILY 04/01/15 [History] Orphenadrine [Norflex] 100 mg PO BID PRN #20 tab 05/18/19 [Rx] methylPREDNISolone [Medrol] 4 mg PO ASDIRECTED #1 dospk 05/18/19 [Rx] Past Medical History Cardiovascular History: Reports: Hypertension Other S[employer]IOR [employer]ER DBA History: Hysterectomy Musculoskeletal History: Reports: Back Pain, Chronic (2 previous lumbar spine surgeries with continued pain referred into the buttocks and upper legs bilaterally. Had congenital dysplasia of the hips. Has had a total hip replacement on the right side and reconstructive surgery on the left.), Osteoarthritis Other Musculoskeletal History: Spinal fusion, hip displasia Neurological History: Reports: Other (See Below) (Restless leg syndrome.) Psychiatric History: Reports: Addiction - Past Surgical History Female Surgical History: Reports: Section (X3) Neurological Surgical History: Reports: Discectomy (He believes L4-L5 levels.), Laminectomy (X2 with discectomy.), Lumbar Spine Musculoskeletal Surgical History: Reports: Hip Replacement (Right side) Other Musculoskeletal Surgeries/Procedures:: left hip reconstruction Social & Family History - Family History Family Medical History: Noncontributory - Caffeine Use Caffeine Use: Reports: None - Living Situation & Occupation Living situation: Reports: Occupation: Unemployed ED ROS GENERAL - Review of Systems Review Of Systems: See Below Constitutional: Denies: Fever, Chills HEENT: Reports: No Symptoms Respiratory: Denies: Shortness of Breath Cardiovascular: Denies: Chest Pain Endocrine: Reports: No Symptoms GI/Abdominal: Denies: Abdominal Pain, Diarrhea, Nausea, Vomiting : Reports: No Symptoms Musculoskeletal: Reports: Back Pain Skin: Reports: No Symptoms Neurological: Reports: Tingling, Difficulty Walking (d/t pain in low back/hips) Psychiatric: Reports: No Symptoms Hematologic/Lymphatic: Reports: No Symptoms Immunologic: Reports: No Symptoms ED EXAM,LOWER BACK PAIN/INJURY - Physical Exam Exam: See Below Exam Limited By: No Limitations General Appearance: Alert, WD/WN, No Apparent Distress Throat/Mouth: Normal Inspection, Normal Lips, Normal Teeth, Normal Gums, Normal Oropharynx, Normal Voice, No Airway Compromise Head: Atraumatic, Normocephalic Neck: Normal Inspection Respiratory/Chest: No Respiratory Distress, Lungs Clear, Normal Breath Sounds, No Accessory Muscle Use, Chest Non-Tender Cardiovascular: Normal Peripheral Pulses, Regular Rate, Rhythm, No Murmur GI/Abdominal: Normal Bowel Sounds, Soft, Non-Tender, No Distention, No Mass Back Exam: Normal Inspection, Decreased Range of Motion (d/t pain), Muscle Spasm (noted to lumbar area near iliac crest) Extremities: Normal Inspection, Normal Capillary Refill Neurological: Alert, Normal Mood/Affect, Normal Dorsiflexion, Normal Plantar Flexion, Oriented x 3, Straight Leg Raise (L), Straight Leg Raise (R). No: Saddle Anesthesia Psychiatric: Normal Affect, Normal Mood Skin Exam: Warm, Dry, Intact, Normal Color, No Rash Course - Vital Signs Last Recorded V/S: Last Vital Signs Temp 98.4 F 05/18/19 09:11 Pulse 73 05/18/19 09:11 Resp 13 05/18/19 09:11 BP 150/77 H 05/18/19 09:11 Pulse Ox 100 05/18/19 09:11 - Orders/Labs/Meds Orders: Active Orders 24 hr Category Date Time Status Influenza Vaccine Charge [RC] .DISCHARGE Care 05/18/19 09:19 Active Meds: Medications Discontinued Medications Generic Name Dose Route Start Last Admin Trade Name Waylon PRN Reason Stop Dose Admin Dexamethasone 10 mg 05/18/19 10:06 05/18/19 10:13 Dexamethasone IM 05/18/19 10:07 10 mg ONETIME ONE Administration Influenza Virus Vaccine 60 mcg 05/18/19 10:00 05/18/19 09:38 Fluzone Quad [id number] Syringe IM 05/18/19 10:01 60 mcg .ONCE ONE Administration Ketorolac Tromethamine 60 mg 05/18/19 10:06 05/18/19 10:13 Toradol IM 05/18/19 10:07 60 mg ONETIME ONE Administration Orphenadrine Citrate 100 mg 05/18/19 10:05 05/18/19 10:14 Norflex PO 05/18/19 10:06 100 mg ONETIME ONE Administration - Re-Assessments/Exams Free Text/Narrative Re-Assessment/Exam: 05/18/19 10:16 Patient presents to the ED for the evaluation of lower back pain. I do believe most of her pain is due to a sciatic component superimposed on top of her chronic low back pain. I did order 10 mg IM dexamethasone, 60 mg IM ketorolac, and 100 mg PO For initial management in the ER. We discussed imaging, and I will provide the patient with an outpatient MRI forearm and she will follow-up with Dr. Vega for further management. She will be sent home with Medrol Dosepak and Norflex. 05/18/19 10:58 Patient is feeling better after medications have been given, she is sitting comfortably on the ER cot. We'll discharge her home with general recommendations. Departure - Departure Time of Disposition: 10:59 Disposition: Home, Self-Care 01 Condition: Fair Clinical Impression: Low back pain due to bilateral sciatica - Discharge Information *PRESCRIPTION DRUG MONITORING PROGRAM REVIEWED*: No *COPY OF PRESCRIPTION DRUG MONITORING REPORT IN PATIENT BRYCE: No Prescriptions: methylPREDNISolone [Medrol] 4 mg PO ASDIRECTED #1 dospk Orphenadrine [Norflex] 100 mg PO BID PRN #20 tab PRN Reason: Spasms Instructions: Sciatica, [id number] Referrals: Anny Wisdom TECHNICAL SOLUTION ARCHITECT [Primary Care Provider] - Forms: ED Department Discharge Additional Instructions: You have been evaluated in the ED for your low back pain. Your pain today is likely due to sciatica in nature. Please take the Medrol Dosepak as prescribed. You were given muscle relaxers, Norflex, take 1 tab 2 times daily as needed for further muscle spasms. You were also provided with a outpatient MRI form of your lumbar region, our radiology department should call to schedule an appointment with you. You may need to do preauthorization with your insurance as you stated you had a recent MRI done in January. Please call to check on the status before they schedule you for the appointment. You should follow up with Dr. Vega after the MRI is done. You will need to follow up with our health information management department on Tuesday, so you may have your records transferred to Dr. Ridley's office. Please use ice/heat as tolerated to the affected area. You may take Tylenol 500 mg or ibuprofen 600mg q6 hrs for pain relief. Please do so until you have a tolerable level of pain with activity. Do not exceed 4000mg Tylenol or 3200mg ibuprofen in a 24 hour time period. Please return to ED if your symptoms should change or worsen. - My Orders Last 24 Hours: My Active Orders 05/18/19 09:19 Influenza Vaccine Charge [RC] .DISCHARGE - Assessment/Plan Last 24 Hours: My Active Orders 05/18/19 09:19 Influenza Vaccine Charge [RC] .DISCHARGE
[2019-05-18] MEDS ORDERED: FLU Vacc QS2019-20(6MOS+)/PF 60 MCG/0.5 ML SYRINGE IM ONE (10:00)
[2019-05-18] MEDS ORDERED: Orphenadrine 100 MG Tab.ER PO ONE (10:05)
[2019-05-18] MEDS ORDERED: Ketorolac 60 MG/2 ML SDV IM ONE (10:06)
[2019-05-18] MEDS ORDERED: Dexamethasone 10 MG/ML SDV IM ONE (10:06)
== END 2019-05-18 11:10 | disposition home or self-care (01) ==
LOC: JD.ED 09:02
DX: M54.42 Lumbago with sciatica, left side (principal); M54.41 Lumbago with sciatica, right side; I10 Essential (primary) hypertension; Z88.1 Allergy status to other antibiotic agents; Z88.8 Allergy status to other drugs, medicaments and biological substances; Z79.899 Other long term (current) drug therapy
CPT/HCPCS: 90471; 90686; 99283; 99283-25; A9270-GY; G0008; J1100; J1885